=== PATIENT | female | born 1960 | race Caucasian/White ===

== ENCOUNTER 2024-01-26 13:31 | Observation (INO) ==
--- NOTE | 2024-01-26 13:40 | ED Triage Note ---
Date of Service January 26, 2024 Provider in Triage Author: Grey Cronin History of Present Illness This patient was briefly evaluated while in triage. An abbreviated physical exam was performed. This patient is a 63-year-old Female who presents to the ED for evaluation right upper quadrant abdominal pain x 5 days, getting worse has been told she has stones in her GB before, but never had pain with it no n/v/d, fevers from [place], here working Physical Exam GENERAL: NAD CARDIOVASCULAR: RRR RESPIRATORY: CTA ABDOMEN: BS x 4. RUQ TTP. Initial orders for labs and / or imaging were placed and patient was placed in the waiting area until a bed is available. Please see further documentation for the full ED course.
[2024-01-26 14:09] LABS: Basophils # (auto) 0.04 K/uL (0.00-0.20); Basophils % (auto) 0.3 %; Eosinophils # (auto) 0.18 K/uL (0.00-0.50); Eosinophils % (auto) 1.5 %; Hematocrit (blood only) 37.6 % (37.0-47.0); Hemoglobin 12.3 g/dl (12.0-16.0); Immature Granulocytes # (auto) 0.05 K/uL (0.01-0.20); Immature Granulocytes % (auto) 0.4 %; Lymphocytes # (auto) 1.52 K/uL (1.20-3.40); Lymphocytes % (auto) 12.7 %; Mean Corpuscular Hemoglobin 29.6 pg (25.0-34.0); Mean Corpuscular Hgb Conc 32.7 g/dL (32.0-36.0); Mean Corpuscular Volume 90.6 fL (80.0-100.0); Mean Platelet Volume 9.1 fL (9.4-12.4); Monocytes % (auto) 5.8 %; Neutrophils # (auto) 9.49 K/uL (1.40-6.50); Neutrophils % (auto) 79.3 %; Platelet Count 243 K/uL (130-400); Red Blood Count 4.15 M/uL (4.20-5.40); White Blood Count 11.98 K/ul (4.8-10.8)
[2024-01-26 14:36] LABS: Albumin Globulin Ratio 1.2 (0.9-2); Albumin Level 4.2 gm/dl (3.4-5.0); Bilirubin,Total 1.1 mg/dl (0.2-1.0); Calcium 9.6 mg/dl (8.6-10.3); Creatinine Clr Calc Pharmacy 67.9 ml/min; Est GFR (African American) 108.1 ml/min; Est GFR (Non-African American) 93.3 ml/min; Globulin 3.5 gm/dl (2.5-4.0); Potassium 3.8 mmol/L (3.5-5.1); Total Protein 7.7 gm/dl (6.0-8.3)
[2024-01-26 14:41] LABS: Troponin I High Sensitivity 14.9 pg/ml (0-14)
--- NOTE | 2024-01-26 15:12 | Ultrasound Report ---
ABDOMINAL ULTRASOUND, RIGHT UPPER QUADRANT HISTORY: RUQ ABD PAIN. COMPARISON: None. FINDINGS: Pancreas: The pancreatic head and tail are obscured by overlying bowel gas. The remaining portions of the pancreas are within normal limits. Liver: The liver is echogenic consistent with fatty change. Trace perihepatic fluid is noted Gallbladder: The gallbladder is distended and partially filled with small stones and sludge. There is mild gallbladder wall thickening. The technologist reported a positive sonographic Leger sign. CBD: 5 mm. Right kidney: No hydronephrosis. IMPRESSION: 1. Distended gallbladder which is partially filled with small stones and sludge. There is associated gallbladder wall thickening and a positive sonographic Leger sign. Therefore, these findings are con sistent with acute cholecystitis. Surgical consultation recommended. 2. Mild hepatic steatosis. ACT 112: Negative or not required by law. Electronically signed by: Chad Varela M.D. 01/26/2024 3:10 PM
[2024-01-26] MEDS: MoRPHine SULFATE 4 MG/ML 1 ML CARP\\VIAL IV STA (15:41)
--- NOTE | 2024-01-26 16:11 | Surgery Consultation ---
Date of Consultation January 26, 2024 Assessment & Plan (1) Acute cholecystitis: This is a 63yF with a PMH of HLD, anxiety, HTN, hypothyroid, lupus, h/o what sounds like an abdominoplasty (10 years ago in [place]) and lap band in [place] who presents to the [facility] ED on 01/26/24 with complaints of R sided abdominal pain that has progressively worsened over the last 4-5 days. She came to our ER for evaluation where she underwent a RUQ US that showed a distended gallbladder which is partially filled with small stones and sludge. There is associated gallbladder wall thickening and a positive sonographic Leger sign. Therefore, these findings are consistent with acute cholecystitis. The patient has been told she has gallstones, but never had issues like this before. On exam [atient's vital signs are stable and she is afebrile. Blood work shows a WBC of 11.4, Hbg 12.3, Tb 1.1, alkp 134 with other lfts within normal limits. On exam patient's abdomen is soft with tenderness to palpation in the RUQ. PSH includes abdominoplasty and lap band. Of significance she is in the area travelling for work, but resides in [place]. She expressed wishes to have the procedure performed in her home town to be near family. Options discussed with patient regarding surgical intervention as early as today vs. seeing if we can temporize her with abx and pain control as a bridge to get her back to [place]. She said she does know a surgeon back home that she could contact. We stated in usual circumstances we would recommend surgical intervention this admission, but that a trial abx is not out of the question to try to get her back home for the procedure. After ongoing discussion she is opting to try to have surgery at home . In this case we would recommend admission for day or so of IV abx and prn pain meds to try to alleviate patient's presenting symptoms. With then plans to send her out on a course of po abx as a bridge to future cholecystectomy. She is agreeable with the plan. Spoke with ER who will reach out to hospitalist for admission and we will follow along while she is here. NPO with ice/sips/meds is okay, IVF, and IV abx to be ordered. Repeat labs in the AM. We will follow up. History of Present Illness History of Present Illness This is a 63yF with a PMH of HLD, anxiety, HTN, hypothyroid, lupus, h/o what sounds like an abdominoplasty (10 years ago in [place]) and lap band in [place] who presents to the [facility] ED on 01/26/24 with complaints of R sided abdominal pain. Patient reports she is just in town travelling for work. She resides in [place]. She says over the last 4-5 days she developed right sided abdominal pain that has been constant and progressively worsening. She denies any issues directly related to food intake. She denies nausea/vomiting, fevers/chills, CP/SOB. Due to her pain, rating it a 9/10 in severity at its worst, she presented to our ER for further evaluation. She underwent a RUQ US that showed a distended gallbladder which is partially filled with small stones and sludge. There is associated gallbladder wall thickening and a positive sonographic Leger sign. Therefore, these findings are consistent with acute cholecystitis. She has been told she has gallstones, but they never caused problems for her before. Patient states she usually runs constipated and takes a bowel regimen for this on occasion. No recent blood thinners. Reports she would want to have surgery in [place] if appropriate and can leave the area to go home at any time in regards to her work. Allergies Allergy/AdvReac Type Severity Reaction Status Date / Time No Known Allergies Allergy Verified 01/26/24 13:42 Home Medications Medication Instructions Recorded Confirmed Type alprazolam 1 mg tablet 0.5 mg PO HS Anxiety 01/26/24 01/26/24 History atorvastatin 40 mg tablet 40 mg PO DAILY 01/26/24 01/26/24 History celecoxib 200 mg capsule 200 mg PO DAILY PRN Pain 01/26/24 01/26/24 History cyclobenzaprine 5 mg tablet 5 mg PO HS PRN Pain/Muscle Spasm 01/26/24 01/26/24 History duloxetine 60 mg capsule,delayed 60 mg PO DAILY 01/26/24 01/26/24 History release ezetimibe 10 mg tablet 10 mg PO DAILY 01/26/24 01/26/24 History ferrous sulfate 325 mg (65 mg 325 mg PO 4XWK 01/26/24 01/26/24 History iron) tablet (FeroSul) fluticasone propionate 50 1 spray intranasal DAILY 01/26/24 01/26/24 History mcg/actuation nasal spray,suspension hydroxychloroquine 200 mg tablet 200 mg PO BID 01/26/24 01/26/24 History levothyroxine 75 mcg tablet 75 mcg PO DAILYBB 01/26/24 01/26/24 History nifedipine 30 mg tablet,extended 30 mg PO DAILY 01/26/24 01/26/24 History release quetiapine 100 mg tablet 50 mg PO HS 01/26/24 01/26/24 History tirzepatide (weight loss) 2.5 2.5 mg subcut WK 01/26/24 01/26/24 History mg/0.5 mL subcutaneous pen injector (Zepbound) Patient History Medical History (Updated 01/26/24 @ 21:18 by Ashtyn Ragsdale MD) Anxiety Systemic lupus erythematosus Social History Smoking Status: Never smoker Second Hand Exposure: No; Hx Alcohol Use: Yes Hx Substance Use: No Preferred Language: Yakut Communication Ability: Effective Ironer Or Presser Required: No Beliefs That Will Affect Care: Episcopal Episcopal Beliefs: Baptism Current Living Situation: Other Current Living Situation Comment: daughter Other Information That Helps Us Care for You: No Feels Safe at Home: Yes Safety Concerns: Feels Safe At This Time Assistive Devices: None Review of Systems Constitutional: no fever and no chills Respiratory: no dyspnea Cardiovascular: no chest pain Gastrointestinal: + abdominal pain and + constipation; no nausea and no vomiting Physical Exam Physical Exam: awake/alert Respiratory: normal respiratory effort Gastrointestinal (Abdomen): Inspection/Auscultation: + abdominal surgical scar (from prior abdominoplasty); abdomen not distended Percussion/Palpation: + abdomen tender (ttp in RUQ) and abdomen soft Results & Data Vital Signs (Past 12 Hours) Vital Signs Temp Pulse Pulse Resp BP BP Pulse Ox 01/26/24 15:24 94 H 18 123/79 93 01/26/24 15:24 93 H 18 92 01/26/24 13:38 97.9 F 109 H 16 108/62 93 O2 Del Method 01/26/24 15:24 Room Air 01/26/24 15:24 Room Air 01/26/24 13:38 Room Air Diagnostic Findings ABDOMINAL ULTRASOUND, RIGHT UPPER QUADRANT HISTORY: RUQ ABD PAIN. COMPARISON: None. FINDINGS: Pancreas: The pancreatic head and tail are obscured by overlying bowel gas. The remaining portions of the pancreas are within normal limits. Liver: The liver is echogenic consistent with fatty change. Trace perihepatic fluid is noted Gallbladder: The gallbladder is distended and partially filled with small stones and sludge. There is mild gallbladder wall thickening. The technologist reported a positive sonographic Leger sign. CBD: 5 mm. Right kidney: No hydronephrosis. IMPRESSION: 1. Distended gallbladder which is partially filled with small stones and sludge. There is associated gallbladder wall thickening and a positive sonographic Leger sign. Therefore, these findings are consistent with acute cholecystitis. Surgical consultation recommended. 2. Mild hepatic steatosis. ACT 112: Negative or not required by law. Electronically signed by: Chad Varela M.D. 01/26/2024 3:10 PM PG Care Time/CCT Total # of Minutes Spent Total Time Spent with Patient: Total time spent is greater than 50% in coordination of care (as documented) at patient's floor/unit and/or counseling patient: Coding Level of Care Code 12512 IN/OBS CONSULT LVL 4,60M Diagnoses Acute cholecystitis K81.0
--- NOTE | 2024-01-26 16:29 | Emergency Department Note ---
Impression & Plan Acute cholecystitis ED Provider Note NAME: ANANDA BENNETT AGE: 63 SEX: F : 1960 ARRIVES VIA: Walk-In INFORMANT: Patient, ED PROVIDER(S): Ashtyn Ragsdale MD CHIEF COMPLAINT: Right abdominal pain HPI: This is 63-year-old female sent for right abdominal pain. Patient states that she was told she has problems with her gallbladder in the past about 5 years ago. She has pain in her right middle/upper quadrant. She notes that is been on for 4 days. She thought it would get better but it is getting worse. She has had nausea without vomiting. No diarrhea. Pain is a 9/10. Otherwise no fevers, chills, chest pain or shortness of breath. ROS: See above HPI for pertinent positives & negatives. A total of 10 systems reviewed and were otherwise negative. PAST MEDICAL HISTORY: See Below PAST SURGICAL HISTORY: See Below FAMILY HISTORY: See Below SOCIAL HISTORY: See Below HOME MEDICATIONS: See Below ALLERGIES: See Below VITALS: See Below PHYSICAL EXAMINATION: General: resting comfortably in no acute distress Head: Normocephalic and atraumatic Eyes: Normal inspection, extraocular muscles intact Ear, nose, throat: Normal external exam Neck: Normal range of motion Respiratory: lungs clear to auscultation bilaterally Cardiovascular: Regular rate/rhythm, no murmur GI: Positive Leger sign, right upper quadrant right lower quadrant tenderness Extremities: nontender, moves all extremities Neuro: The patient awake and alert, appropriately conversive, no focal deficits, symmetric faces Skin: Warm, dry, and intact MEDICAL DECISION MAKING: This is a 63-year-old female presented for right abdominal pain. Blood work and ultrasound ordered at triage. Blood work is reviewed reveals a borderline cytosis to 11.98, otherwise sodium 134. Troponin is mildly elevated 14 9. Normal transaminases. -Patient's ultrasound does reveal signs of acute cholecystitis with positive Leger sign, sludge and gallstones. -Patient requesting medication at this time for pain. Will give morphine IV. -Discussed with Beatrice Bob PA-C for surgery, patient not interested in surgery at this time wants to try antibiotics instead. -Will admit for IV antibiotics, Zosyn which is ordered at this time. -Care discussed with hospitalist service, Dr. Peng Lantigua for admission Differential diagnosis: SBO, diverticulitis, pancreatitis, cholecystitis ER treatment provided: See below Diagnostics interpreted by me: ECG: ECG independently interpreted by me with normal sinus rhythm, rate of 99, normal axis, normal NV, normal QRS, normal QTc, no ST segment elevations consistent with STEMI criteria Cardiac Monitoring: An order was placed for continuous cardiac monitoring. The monitor shows a rate of 85 with sinus rhythm. Laboratory studies: As stated above and show below. Imaging studies: See below. Past Med/Surg History Problem List (Updated 01/26/24 @ 21:18 by Ashtyn Ragsdale MD) Acute cholecystitis (Acute) Medical History (Updated 01/26/24 @ 21:18 by Ashtyn Ragsdale MD) Anxiety Systemic lupus erythematosus Social History Smoking Status: Never smoker Feels Safe at Home: Yes Allergies Allergies Allergy/AdvReac Type Severity Reaction Status Date / Time No Known Allergies Allergy Verified 01/26/24 13:42 Home Meds Home Medications Medication Instructions Recorded Confirmed alprazolam 1 mg tablet 0.5 mg PO HS Anxiety 01/26/24 01/26/24 atorvastatin 40 mg tablet 40 mg PO DAILY 01/26/24 01/26/24 celecoxib 200 mg capsule 200 mg PO DAILY PRN Pain 01/26/24 01/26/24 cyclobenzaprine 5 mg tablet 5 mg PO HS PRN Pain/Muscle Spasm 01/26/24 01/26/24 duloxetine 60 mg capsule,delayed 60 mg PO DAILY 01/26/24 01/26/24 release ezetimibe 10 mg tablet 10 mg PO DAILY 01/26/24 01/26/24 ferrous sulfate 325 mg (65 mg 325 mg PO 4XWK 01/26/24 01/26/24 iron) tablet (FeroSul) fluticasone propionate 50 1 spray intranasal DAILY 01/26/24 01/26/24 mcg/actuation nasal spray,suspension hydroxychloroquine 200 mg tablet 200 mg PO BID 01/26/24 01/26/24 levothyroxine 75 mcg tablet 75 mcg PO DAILYBB 01/26/24 01/26/24 nifedipine 30 mg tablet,extended 30 mg PO DAILY 01/26/24 01/26/24 release quetiapine 100 mg tablet 50 mg PO HS 01/26/24 01/26/24 tirzepatide (weight loss) 2.5 2.5 mg subcut WK 01/26/24 01/26/24 mg/0.5 mL subcutaneous pen injector (Zepbound) Results & Data (ED) Vital Signs Vital Signs - 24 hr 01/26/24 13:38 01/26/24 15:24 01/26/24 15:24 Temperature 36.6 C Temperature Source Temporal Artery Scan Pulse Rate 109 H 93 H Pulse Rate [Apical] 94 H Pulse Rate from SpO2 Sensor Respiratory Rate 16 18 18 Respiratory Effort / Characteristics Non-Labored Spontaneous Non-Labored Spontaneous Respiratory Depth Normal Normal Blood Pressure 108/62 Blood Pressure [Left Arm] 123/79 Blood Pressure Mean 77 Blood Pressure Mean [Left Arm] 93 Pulse Oximetry 93 92 93 Oxygen Delivery Method Room Air Room Air Room Air Sepsis Recent Fever Within 48 Hours No Sepsis New/Unexplained Change in Mental Status No Sepsis Action Taken by Nursing No Action Required 01/26/24 15:26 01/26/24 15:33 01/26/24 15:45 Temperature Temperature Source Pulse Rate 91 H 94 H 101 H Pulse Rate [Apical] Pulse Rate from SpO2 Sensor 94 H 101 H Respiratory Rate 28 H 26 H Respiratory Effort / Characteristics Respiratory Depth Blood Pressure Blood Pressure [Left Arm] Blood Pressure Mean Blood Pressure Mean [Left Arm] Pulse Oximetry 90 93 Oxygen Delivery Method Sepsis Recent Fever Within 48 Hours Sepsis New/Unexplained Change in Mental Status Sepsis Action Taken by Nursing 01/26/24 15:51 01/26/24 16:12 01/26/24 16:27 Temperature Temperature Source Pulse Rate 102 H 103 H 105 H Pulse Rate [Apical] Pulse Rate from SpO2 Sensor 102 H 103 H Respiratory Rate 26 H 23 23 Respiratory Effort / Characteristics Respiratory Depth Blood Pressure Blood Pressure [Left Arm] Blood Pressure Mean Blood Pressure Mean [Left Arm] Pulse Oximetry 93 93 Oxygen Delivery Method Sepsis Recent Fever Within 48 Hours Sepsis New/Unexplained Change in Mental Status Sepsis Action Taken by Nursing 01/26/24 16:33 01/26/24 16:45 01/26/24 16:57 Temperature Temperature Source Pulse Rate 104 H 63 101 H Pulse Rate [Apical] Pulse Rate from SpO2 Sensor 101 H Respiratory Rate 19 21 20 Respiratory Effort / Characteristics Respiratory Depth Blood Pressure Blood Pressure [Left Arm] Blood Pressure Mean Blood Pressure Mean [Left Arm] Pulse Oximetry 90 Oxygen Delivery Method Sepsis Recent Fever Within 48 Hours Sepsis New/Unexplained Change in Mental Status Sepsis Action Taken by Nursing 01/26/24 17:00 01/26/24 17:00 01/26/24 17:27 Temperature Temperature Source Pulse Rate 102 H 100 H Pulse Rate [Apical] 100 H Pulse Rate from SpO2 Sensor 103 H 99 H Respiratory Rate 16 19 19 Respiratory Effort / Characteristics Respiratory Depth Blood Pressure Blood Pressure [Left Arm] 102/68 Blood Pressure Mean Blood Pressure Mean [Left Arm] 79 Pulse Oximetry 92 91 87 L Oxygen Delivery Method Room Air Sepsis Recent Fever Within 48 Hours Sepsis New/Unexplained Change in Mental Status Sepsis Action Taken by Nursing 01/26/24 17:36 01/26/24 17:45 01/26/24 17:57 Temperature Temperature Source Pulse Rate 97 H 103 H 87 Pulse Rate [Apical] Pulse Rate from SpO2 Sensor 97 H 103 H 102 H Respiratory Rate 17 17 21 Respiratory Effort / Characteristics Respiratory Depth Blood Pressure Blood Pressure [Left Arm] Blood Pressure Mean Blood Pressure Mean [Left Arm] Pulse Oximetry 96 95 96 Oxygen Delivery Method Sepsis Recent Fever Within 48 Hours Sepsis New/Unexplained Change in Mental Status Sepsis Action Taken by Nursing Laboratory Data 01/26/24 13:40 01/26/24 13:40 Lab Results 01/26/24 Range/Units 13:40 WBC 11.98 H (4.8-10.8) K/ul RBC 4.15 L (4.20-5.40) M/uL Hgb 12.3 (12.0-16.0) g/dl Hct 37.6 (37.0-47.0) % MCV 90.6 (80.0-100.0) fL MCH 29.6 (25.0-34.0) pg MCHC 32.7 (32.0-36.0) g/dL RDW Std Deviation 47.0 H (36.4-46.3) fL RDW Coeff of Cuong 14.0 (11.5-14.5) % Plt Count 243 (130-400) K/uL MPV 9.1 L (9.4-12.4) fL Immature Gran % (Auto) 0.4 % Neut % (Auto) 79.3 % Lymph % (Auto) 12.7 % [place] % (Auto) 5.8 % Eos % (Auto) 1.5 % Baso % (Auto) 0.3 % Neut # (Auto) 9.49 H (1.40-6.50) K/uL Lymph # (Auto) 1.52 (1.20-3.40) K/uL [place] # (Auto) 0.70 H (0.11-0.59) K/uL Eos # (Auto) 0.18 (0.00-0.50) K/uL Baso # (Auto) 0.04 (0.00-0.20) K/uL Immature Gran # (Auto) 0.05 (0.01-0.20) K/uL Sodium 134 L (136-145) mmol/L Potassium 3.8 (3.5-5.1) mmol/L Chloride 101 (98-107) mmol/L Carbon Dioxide 23 (21-32) mmol/L Anion Gap 10 (3-11) BUN 9 (6-23) mg/dl Creatinine 0.69 (0.6-1.2) mg/dl Est Cr Clr Drug Dosing 67.9 ml/min Est GFR ( Amer) 108.1 ml/min Est GFR (Non-Af Amer) 93.3 ml/min BUN/Creatinine Ratio 13.0 (10-20) Glucose 167 H (70-99(Fasting)) mg/dl Calcium 9.6 (8.6-10.3) mg/dl Total Bilirubin 1.1 H (0.2-1.0) mg/dl AST 19 (13-39) U/L ALT 24 (7-52) U/L Alkaline Phosphatase 134 H (34-104) U/L Troponin I High Sens 14.9 H (0-14) pg/ml Total Protein 7.7 (6.0-8.3) gm/dl Albumin 4.2 (3.4-5.0) gm/dl Globulin 3.5 (2.5-4.0) gm/dl Albumin/Globulin Ratio 1.2 (0.9-2) Lipase 17 (11-82) U/L Administered Medications Discontinued Medications Piperacillin Sod/Tazobactam Sod (Zosyn) 4.5 gm in 100 mls @ 200 mls/hr IV NOW ONE Stop: 01/26/24 16:51 Last Infusion: 01/26/24 17:39 Dose: Infused Documented By: Admin: 01/26/24 16:53 Dose: 200 mls/hr Documented By: MERCEDES Lactated Ringer's (Lr) 1,000 mls @ 999 mls/hr IV .Q1H1M ONE Stop: 01/26/24 18:34 Last Infusion: 01/26/24 20:39 Dose: Infused Documented By: Admin: 01/26/24 17:39 Dose: 999 mls/hr Documented By: MERCEDES Morphine Sulfate (Morphine Sulfate 4 Mg/Ml 1 Ml Carp\Vial) 4 mg IV NOW STA Stop: 01/26/24 15:27 Last Admin: 01/26/24 15:41 Dose: 4 mg Documented By: MERCEDES Imaging Data Radiologist's Impression: Gallbladder Ultrasound 01/26/24 13:41 ABDOMINAL ULTRASOUND, RIGHT UPPER QUADRANT HISTORY: RUQ ABD PAIN. COMPARISON: None. FINDINGS: Pancreas: The pancreatic head and tail are obscured by overlying bowel gas. The remaining portions of the pancreas are within normal limits. Liver: The liver is echogenic consistent with fatty change. Trace perihepatic fluid is noted Gallbladder: The gallbladder is distended and partially filled with small stones and sludge. There is mild gallbladder wall thickening. The technologist reported a positive sonographic Leger sign. CBD: 5 mm. Right kidney: No hydronephrosis. IMPRESSION: 1. Distended gallbladder which is partially filled with small stones and sludge. There is associated gallbladder wall thickening and a positive sonographic Leger sign. Therefore, these findings are consistent with acute cholecystitis. Surgical consultation recommended. 2. Mild hepatic steatosis. ACT 112: Negative or not required by law. Electronically signed by: Chad Varela M.D. 01/26/2024 3:10 PM Discharge Plan Visit Data Chief Complaint: Abdominal Pain Stated Complaint: ABD PAINS ED Provider: Ashtyn Ragsdale Discharge Problem: Acute cholecystitis
[2024-01-26] MEDS: PIPERACILLIN/TAZOBACTAM 4.5 GM/100 ML BAG IV ONE (16:53)
--- NOTE | 2024-01-26 17:13 | Electrocardiogram Report ---
Test Reason : Blood Pressure : */* mmHG Vent. Rate : 99 BPM Atrial Rate : 99 BPM P-R Int : 164 ms QRS Dur : 84 ms QT Int : 320 ms P-R-T Axes : 19 -14 28 degrees QTcB Int : 410 ms Normal sinus rhythm Old Anterolateral infarct Abnormal ECG No previous ECGs available Confirmed by Branden Pop ([id number]) on 01/26/2024 5:13:45 PM Referred By: NO PCP Confirmed By: Branden Pop
[2024-01-26] MEDS: LACTATED RINGER'S 1,000 ML IV ONE (17:39)
--- NOTE | 2024-01-26 17:39 | History & Physical Report ---
Date of Service January 26, 2024 Assessment & Plan (1) Acute cholecystitis: Plan: Ceftriaxone + metronidazole NPO, IV fluids Consult general surgery Repeat LFTs in AM Plan Raynauds - continue nifedipine (notably usual runs a low BP) SLE - Continue hydroxychloroquine Anxiety - continue duloxetine and quetiapine (patient reports not taking Wellbutrin as prescribed and reduced dose of quetiapine 50mg instead of 150mg) VTE Prophylaxis - Lovenox 40mg SQ daily Diet - NPO Disposition - admit to med/surg Admission and Anticipated Discharge Date Admission Date: January 26, 2024 History of Present Illness Chief Complaint: Abdominal pain Primary Care Provider: NO PCP Wendy Segura is a 63 year old female with SLE who presents to the ER with abdominal pain. She reports 4 days of progressively worse right sided abdominal pain, no radiation, severity of pain 9/10 on arrival to the ER, currently 5/10, worse with eating anything, associated nausea. She was bending over while walking with pain today therefore decided to come in because the severity became much worse. No fever, chills, change in bowels, vomiting. 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 In the ER CT showed acute cholecystitis. She discussed with surgery and wishes to treat with antibiotics rather than surgery in order to return home to [place] to have the eventual cholecystectomy where she will be closer to family. Therefore surgery recommended admission under medicine. Allergies Allergy/AdvReac Type Severity Reaction Status Date / Time No Known Allergies Allergy Verified 01/26/24 13:42 Home Medications Medication Instructions Recorded Confirmed Type alprazolam 1 mg tablet 0.5 mg PO HS Anxiety 01/26/24 01/26/24 History atorvastatin 40 mg tablet 40 mg PO DAILY 01/26/24 01/26/24 History celecoxib 200 mg capsule 200 mg PO DAILY PRN Pain 01/26/24 01/26/24 History cyclobenzaprine 5 mg tablet 5 mg PO HS PRN Pain/Muscle Spasm 01/26/24 01/26/24 History duloxetine 60 mg capsule,delayed 60 mg PO DAILY 01/26/24 01/26/24 History release ezetimibe 10 mg tablet 10 mg PO DAILY 01/26/24 01/26/24 History ferrous sulfate 325 mg (65 mg 325 mg PO 4XWK 01/26/24 01/26/24 History iron) tablet (FeroSul) fluticasone propionate 50 1 spray intranasal DAILY 01/26/24 01/26/24 History mcg/actuation nasal spray,suspension hydroxychloroquine 200 mg tablet 200 mg PO BID 01/26/24 01/26/24 History levothyroxine 75 mcg tablet 75 mcg PO DAILYBB 01/26/24 01/26/24 History nifedipine 30 mg tablet,extended 30 mg PO DAILY 01/26/24 01/26/24 History release quetiapine 100 mg tablet 50 mg PO HS 01/26/24 01/26/24 History tirzepatide (weight loss) 2.5 2.5 mg subcut WK 01/26/24 01/26/24 History mg/0.5 mL subcutaneous pen injector (Zepbound) Past Med/Surg History Problem List (Updated 01/26/24 @ 21:18 by Ashtyn Ragsdale MD) Acute cholecystitis (Acute) Medical History (Updated 01/26/24 @ 21:18 by Ashtyn Ragsdale MD) Anxiety Systemic lupus erythematosus Social History Smoking Status: Never smoker Second Hand Exposure: No; Hx Alcohol Use: Yes Hx Substance Use: No Preferred Language: Faroese Communication Ability: Effective Life Sciences Teacher Required: No Beliefs That Will Affect Care: Buddhism Buddhism Beliefs: Latter Day Current Living Situation: Other Current Living Situation Comment: daughter Other Information That Helps Us Care for You: No Feels Safe at Home: Yes Safety Concerns: Feels Safe At This Time Assistive Devices: None Review of Systems Review of Systems: All systems reviewed & are unremarkable except as noted in HPI & below Physical Exam Constitutional: WD/WN, vitals as above Eyes: PERRL, conjunctivae normal, anicteric sclerae ENMT: external ear and nose normal, oropharynx normal Respiratory: normal respiratory effort, lungs clear to auscultation Cardiovascular: RRR, no murmur, no edema Gastrointestinal (Abdomen): Inspection/Auscultation: abdomen normal to inspection; abdomen not distended Percussion/Palpation: + abdomen tender (RUQ), + guarding and abdomen soft; abdomen not rigid Musculoskeletal: no cyanosis or clubbing, extremities motor strength 5/5 Skin: no rashes, warm and dry Neurologic: moves all extremities and awake; not confused Psychiatric: A+Ox3, euthymic affect Genitourinary: no CVA tenderness Results & Data Results & Data Vital Signs (Past 12 Hours) Vital Signs Temp Pulse Pulse Resp BP BP Pulse Ox 01/26/24 17:00 100 H 16 102/68 92 01/26/24 15:26 91 H 01/26/24 15:24 94 H 18 123/79 93 01/26/24 15:24 93 H 18 92 01/26/24 13:38 36.6 C 109 H 16 108/62 93 O2 Del Method 01/26/24 17:00 Room Air 01/26/24 15:26 01/26/24 15:24 Room Air 01/26/24 15:24 Room Air 01/26/24 13:38 Room Air Laboratory Results Abnormal lab results 01/26/24 Range/Units 13:40 WBC 11.98 H (4.8-10.8) K/ul RBC 4.15 L (4.20-5.40) M/uL RDW Std Deviation 47.0 H (36.4-46.3) fL MPV 9.1 L (9.4-12.4) fL Neut # (Auto) 9.49 H (1.40-6.50) K/uL [place] # (Auto) 0.70 H (0.11-0.59) K/uL Sodium 134 L (136-145) mmol/L Glucose 167 H (70-99(Fasting)) mg/dl Total Bilirubin 1.1 H (0.2-1.0) mg/dl Alkaline Phosphatase 134 H (34-104) U/L Troponin I High Sens 14.9 H (0-14) pg/ml Diagnostic Findings ABDOMINAL ULTRASOUND, RIGHT UPPER QUADRANT HISTORY: RUQ ABD PAIN. COMPARISON: None. FINDINGS: Pancreas: The pancreatic head and tail are obscured by overlying bowel gas. The remaining portions of the pancreas are within normal limits. Liver: The liver is echogenic consistent with fatty change. Trace perihepatic fluid is noted Gallbladder: The gallbladder is distended and partially filled with small stones and sludge. There is mild gallbladder wall thickening. The technologist reported a positive sonographic Leger sign. CBD: 5 mm. Right kidney: No hydronephrosis. IMPRESSION: 1. Distended gallbladder which is partially filled with small stones and sludge. There is associated gallbladder wall thickening and a positive sonographic Leger sign. Therefore, these findings are consistent with acute cholecystitis. Surgical consultation recommended. 2. Mild hepatic steatosis. Medications Administered ER Medications Given: Zosyn 4.5g IV Morphine 4mg IV ECG Rate (beats per minute): 99 Rhythm: sinus tachycardia Findings: no acute ischemic change Comparison ECG Date: no prior available Code Status & VTE Plan Code Status Full VTE Prophylaxis Plan VTE Prophylaxis will be ordered: Yes PG Care Time/CCT Total # of Minutes Spent Total Time Spent with Patient: Total time spent is greater than 50% in coordination of care (as documented) at patient's floor/unit and/or counseling patient: Coding Level of Care Code 37161 INT INP/OBS CARE 2/MIN Diagnoses Acute cholecystitis K81.0
[2024-01-26] MEDS: metroNIDAZOLE 500 MG/100 ML BAG IV SCH (22:01)
[2024-01-26] MEDS: LACTATED RINGER'S 1,000 ML IV SCH (22:01)
[2024-01-26] MEDS: ACETAMINOPHEN 1,000 MG/100 ML VIAL IV SCH (22:01)
[2024-01-26] MEDS: cefTRIAXone SODIUM 2,000 MG/50 ML BAG IV SCH (22:15)
[2024-01-26] MEDS ORDERED: ALPRAZolam 0.5 MG TABLET PO PRN (22:54)
[2024-01-26] MEDS: QUEtiapine FUMARATE 25 MG TABLET PO SCH (23:34)
[2024-01-26] MEDS: HYDROXYCHLOROQUINE SULFATE 200 MG TAB PO SCH (23:34)
[2024-01-27] MEDS: LEVOTHYROXINE SODIUM 75 MCG TABLET PO SCH (05:30)
[2024-01-27 05:46] LABS: Appearance Urine Clear (Clear); Bacteria Urine Automated None Seen (None Seen); Bilirubin Urine Negative (Negative); Blood Urine Negative (Negative); Cast Urine Automated 0-2 /lpf (0-2); Color Urine Yellow; Epithelial Cell Urine Auto 0-2 /hpf (0-2); Glucose Urine UA Negative (Negative); Ketones Urine Negative (Negative); Leukocyte Esterase Urine 1+ (Negative); Nitrite Urine Negative (Negative); Protein Urine Negative (Negative); RBC Urine Automated 0-2 /hpf (0-2); Specific Gravity Urine 1.011 (1.000-1.030); Urobilinogen Urine Negative (Negative)
--- NOTE | 2024-01-27 08:18 | Surgery Progress Note ---
Date of Service January 27, 2024 Assessment & Plan (1) Acute cholecystitis: Plan: Pt here with RUQ pain and workup revealing evidence of acute cholecystitis Labs this AM are pending. Vitals are stable Pt reports feeling clinically better. She remains ttp in the RUQ Will review lab data when resulted, if no issues may consider initiating liquids She has requested to connect with a surgeon at home in [place] to be closer to family, which is why we will hold off on lap tiffany this admission Continue IV abx while in house, will need script for po abx upon dispo to get her through to home until she can f/u with surgeon dr encarnacion covering wknd as above. feeling much better. wbc dropped to 7,000. continue conservative management. goal is d/c to go home and have elective cholecystectomy in [place]. Admission and Anticipated Discharge Date Admission Date: January 26, 2024 Subjective Patient reports feeling better than yesterday, although warper tender to palpation. No other complaints. Says she does have a surgeon close to home she will connect with. Physical Exam Physical Exam: awake/alert, no distress Respiratory: normal respiratory effort Gastrointestinal (Abdomen): Percussion/Palpation: + abdomen tender (ttp in the ruq) and abdomen soft Results & Data Vital Signs (Past 12 Hours) Vital Signs Temp Pulse Pulse Resp BP BP Pulse Ox 01/27/24 07:32 98.2 F 76 16 95/60 L 92 01/26/24 21:25 98.1 F 95 H 18 114/74 93 01/26/24 20:30 85 14 90/61 L 99 O2 Del Method 01/27/24 07:32 Room Air 01/26/24 21:25 Room Air 01/26/24 20:30 Nasal Cannula PG Care Time/CCT Total # of Minutes Spent Total Time Spent with Patient: Total time spent is greater than 50% in coordination of care (as documented) at patient's floor/unit and/or counseling patient: Coding Level of Care Code 46965 SUB INP/OBS CARE 06/30MIN Diagnoses Acute cholecystitis K81.0
[2024-01-27 08:35] LABS: Basophils # (auto) 0.02 K/uL (0.00-0.20); Basophils % (auto) 0.3 %; Eosinophils % (auto) 4.1 %; Hematocrit (blood only) 30.8 % (37.0-47.0); Hemoglobin 10.2 g/dl (12.0-16.0); Immature Granulocytes # (auto) 0.03 K/uL (0.01-0.20); Immature Granulocytes % (auto) 0.4 %; Lymphocytes # (auto) 1.54 K/uL (1.20-3.40); Lymphocytes % (auto) 21.1 %; Mean Corpuscular Hemoglobin 29.7 pg (25.0-34.0); Mean Corpuscular Hgb Conc 33.1 g/dL (32.0-36.0); Mean Corpuscular Volume 89.8 fL (80.0-100.0); Mean Platelet Volume 9.4 fL (9.4-12.4); Monocytes # (auto) 0.58 K/uL (0.11-0.59); Monocytes % (auto) 7.9 %; Neutrophils # (auto) 4.84 K/uL (1.40-6.50); Neutrophils % (auto) 66.2 %; Platelet Count 218 K/uL (130-400); RDW Coefficient of Variation 14.2 % (11.5-14.5); RDW Standard Deviation 46.8 fL (36.4-46.3); Red Blood Count 3.43 M/uL (4.20-5.40); White Blood Count 7.31 K/ul (4.8-10.8)
[2024-01-27] MEDS ORDERED: ATORVASTATIN 40 MG TAB PO SCH (09:00)
[2024-01-27] MEDS: NIFEdipine EXTENDED REL 30 MG TABCR PO SCH (09:27)
[2024-01-27] MEDS: DULoxetine HCL 60 MG CAP PO SCH (09:28)
[2024-01-27 09:29] LABS: Albumin Globulin Ratio 1.2 (0.9-2); Albumin Level 3.3 gm/dl (3.4-5.0); BUN Creatinine Ratio 12.7 (10-20); Bilirubin,Total 0.9 mg/dl (0.2-1.0); Calcium 8.6 mg/dl (8.6-10.3); Creatinine Clr Calc Pharmacy 84.8 ml/min; Est GFR (African American) 116.5 ml/min; Est GFR (Non-African American) 100.5 ml/min; Globulin 2.7 gm/dl (2.5-4.0); Potassium 3.7 mmol/L (3.5-5.1)
--- NOTE | 2024-01-27 13:03 | Hospitalist Progress Note ---
Date of Service January 27, 2024 Assessment & Plan (1) Acute cholecystitis: Plan: Her abdominal pain has worsened. LFTs are now elevated. She remains on intravenous Rocephin and Flagyl, day 2. Surgery consultation appreciated. Hopefully the surgery can be done as soon as possible. (2) Transaminitis: Plan: LFTs are mildly elevated. Daily lab ordered (3) Essential hypertension: Plan: Stable. Continue current medical management (4) Hyperlipidemia: Plan: Statin therapy is temporarily on hold (5) Primary hypothyroidism: Plan: Stable. Continue current thyroid replacement (6) Systemic lupus erythematosus: Plan: Stable. Continue hydroxychloroquine therapy Plan Hopefully laparoscopic cholecystectomy can be performed as soon as possible here. Admission and Anticipated Discharge Date Admission Date: January 26, 2024 Subjective Alert and oriented. She has palpable right upper quadrant pain and in fact her pain is worsened and nursing is notifying surgery. LFTs are elevated. She remains on Rocephin and Flagyl, day 2. Hopefully surgery can be accomplished sooner here rather than later in [facility]. Review of Systems 2 Review of Systems: Constitutionalno fever or chills ENTno blurred vision, no double vision, no epistaxis, no sore throat Respiratoryno cough, no wheezing, no shortness of breath Cardiacno palpitations, no chest pain, no syncope GIanorexia. Right upper quadrant pain. No diarrhea, melena, hematochezia GUno urinary retention, no urinary incontinence, no dysuria, no hematuria Musculoskeletalno joint pain, no muscle tenderness Skinno bruising, no rashes, no pruritus Neurono isolated weakness, no paresthesia, no weakness Psychno depression, no anxiety Physical Exam 2 Physical Exam: General-alert and oriented x3, no fever, no chills HEENT-head atraumatic and normocephalic, pupils equal and reactive to light, extraocular muscles intact Neck-no lymphadenopathy or thyromegaly, trachea midline Chest-clear to auscultation. No rales, wheezing or rhonchi Cardiac-regular rate and rhythm, normal S1 and S2 Abdomen-right upper quadrant discomfort with palpation. No masses. No rebound or guarding. Normal bowel sounds, no hepatosplenomegaly Extremities-no cyanosis, clubbing, or edema Neuro-cranial nerves II through XII intact, motor and sensory function within normal limits, strength symmetrical, no focal deficits Psych-normal affect, normal mood Results & Data Results & Data Vital Signs (Past 12 Hours) Vital Signs Temp Pulse Pulse Resp BP Pulse Ox O2 Del Method 01/27/24 12:52 36.5 C 82 16 96/65 L 91 Room Air 01/27/24 09:44 36.5 C 76 16 99/64 L 94 Room Air 01/27/24 07:32 36.8 C 76 16 95/60 L 92 Room Air Laboratory Results 01/27/24 08:10 01/27/24 08:10 PG Care Time/CCT Total # of Minutes Spent Total Time Spent with Patient: Total time spent is greater than 50% in coordination of care (as documented) at patient's floor/unit and/or counseling patient: Coding Level of Care Code 53607 SUB INP/OBS CARE 3/50MIN Diagnoses Acute cholecystitis K81.0 Transaminitis R74.01 Essential hypertension I10 Hyperlipidemia E78.5 Primary hypothyroidism E03.9 Systemic lupus erythematosus M32.9
[2024-01-27] MEDS: MoRPHine SULFATE 2 MG/ML CARP IV PRN (13:31)
[2024-01-27] MEDS: MoRPHine SULFATE 4 MG/ML 1 ML CARP\\VIAL IV PRN (20:42)
[2024-01-28] MEDS: LACTATED RINGER'S 1,000 ML IV SCH ×2 (03:38→18:04)
[2024-01-28 06:47] LABS: Basophils # (auto) 0.05 K/uL (0.00-0.20); Basophils % (auto) 0.6 %; Eosinophils # (auto) 0.27 K/uL (0.00-0.50); Eosinophils % (auto) 3.4 %; Hemoglobin 10.8 g/dl (12.0-16.0); Immature Granulocytes # (auto) 0.03 K/uL (0.01-0.20); Immature Granulocytes % (auto) 0.4 %; Lymphocytes % (auto) 16.3 %; Mean Corpuscular Hemoglobin 29.9 pg (25.0-34.0); Mean Corpuscular Hgb Conc 32.7 g/dL (32.0-36.0); Mean Corpuscular Volume 91.4 fL (80.0-100.0); Mean Platelet Volume 8.8 fL (9.4-12.4); Monocytes # (auto) 0.69 K/uL (0.11-0.59); Monocytes % (auto) 8.7 %; Neutrophils # (auto) 5.62 K/uL (1.40-6.50); Neutrophils % (auto) 70.6 %; Platelet Count 247 K/uL (130-400); RDW Coefficient of Variation 14.5 % (11.5-14.5); RDW Standard Deviation 48.3 fL (36.4-46.3); Red Blood Count 3.61 M/uL (4.20-5.40); White Blood Count 7.96 K/ul (4.8-10.8)
[2024-01-28 07:34] LABS: Albumin Globulin Ratio 1.2 (0.9-2); Albumin Level 3.2 gm/dl (3.4-5.0); BUN Creatinine Ratio 16.3 (10-20); Bilirubin,Total 0.8 mg/dl (0.2-1.0); Calcium 8.4 mg/dl (8.6-10.3); Creatinine Clr Calc Pharmacy 95.1 ml/min; Est GFR (Non-African American) 104.4 ml/min; Globulin 2.7 gm/dl (2.5-4.0); Potassium 3.9 mmol/L (3.5-5.1); Total Protein 5.9 gm/dl (6.0-8.3)
--- NOTE | 2024-01-28 08:35 | XRay Report ---
SINGLE VIEW CHEST CLINICAL HISTORY: Hypoxia. Cholecystitis. FINDINGS: An AP, portable, upright chest radiograph is obtained. No prior studies are available for c omparison at the time of dictation. The cardiomediastinal silhouette is unremarkable. There is bibasi lar airspace consolidation. Question small pleural effusions. No pneumothorax is seen. The bony thora x is grossly intact. IMPRESSION: 1. There is bibasilar consolidation which could represent segmental atelectasis and/or pneumonia/aspi ration pneumonitis. Correlate clinically. 2. Small pleural effusions are not excluded. ACT 112: Negative or not required by law. Electronically signed by: Audi Ewing M.D. 01/28/2024 8:33 AM
[2024-01-28] MEDS ORDERED: ONDANSETRON INJ 2 MG/ML 2 ML VIAL IV PRN (08:37)
[2024-01-28] MEDS: ONDANSETRON INJ 2 MG/ML 2 ML VIAL IV STA (08:52)
--- NOTE | 2024-01-28 12:39 | Hospitalist Progress Note ---
Date of Service January 28, 2024 Assessment & Plan (1) Acute cholecystitis: Plan: Her right upper quadrant pain has now improved. ERCP ordered and pending. Continue Rocephin and Flagyl, day 3. Surgery consultation appreciated. (2) Transaminitis: Plan: LFTs are mildly elevated and continue to rise. MRCP ordered today, January 27, to see if there is any evidence of a common bile duct stone. Daily lab ordered (3) Essential hypertension: Plan: Stable. Continue current medical management (4) Hyperlipidemia: Plan: Statin therapy is temporarily on hold (5) Primary hypothyroidism: Plan: Stable. Continue current thyroid replacement (6) Systemic lupus erythematosus: Plan: Stable. Continue hydroxychloroquine therapy (7) Acute respiratory failure with hypoxia: Plan: I suspect she has a degree of lower lobe atelectasis from the acute cholecystitis. Supplemental oxygen per nasal cannula to maintain saturation greater than 90%. Wean off as tolerated. Incentive spirometry has been ordered Plan Hopefully laparoscopic cholecystectomy can be performed as soon as possible here. MRCP pending to determine if there is evidence of a common bile duct stone. If there is, she will need to be transferred to a tertiary care center. I have spoken to her daughter, Mirian, by phone and told her the plan. Admission and Anticipated Discharge Date Admission Date: January 26, 2024 Subjective Alert and oriented. She states she is feeling somewhat better with less right upper quadrant discomfort but her LFTs continue to rise. Case discussed with general surgery. Will obtain MRCP to see if there is a common bile duct stone. I expressed my opinion that cholecystectomy should move forward as soon as possible. If she has evidence of a common bile duct stone, she will need to be transferred to a tertiary care center for surgical intervention because we cannot do ERCP here. I updated her daughter, Mirian, by phone today. She is now n.p.o. and IV fluids are at 100. She remains on Rocephin and Flagyl. She is requiring low-flow oxygen and chest x-ray is pending. Review of Systems 2 Review of Systems: Constitutionalno fever or chills ENTno blurred vision, no double vision, no epistaxis, no sore throat Respiratoryno cough, no wheezing, no shortness of breath Cardiacno palpitations, no chest pain, no syncope GIanorexia. Right upper quadrant pain. No diarrhea, melena, hematochezia GUno urinary retention, no urinary incontinence, no dysuria, no hematuria Musculoskeletalno joint pain, no muscle tenderness Skinno bruising, no rashes, no pruritus Neurono isolated weakness, no paresthesia, no weakness Psychno depression, no anxiety Physical Exam 2 Physical Exam: General-alert and oriented x3, no fever, no chills HEENT-head atraumatic and normocephalic, pupils equal and reactive to light, extraocular muscles intact Neck-no lymphadenopathy or thyromegaly, trachea midline Chest-clear to auscultation. No rales, wheezing or rhonchi Cardiac-regular rate and rhythm, normal S1 and S2 Abdomen-right upper quadrant discomfort with palpation. No masses. No rebound or guarding. Normal bowel sounds, no hepatosplenomegaly Extremities-no cyanosis, clubbing, or edema Neuro-cranial nerves II through XII intact, motor and sensory function within normal limits, strength symmetrical, no focal deficits Psych-normal affect, normal mood Results & Data Results & Data Vital Signs (Past 12 Hours) Vital Signs Temp Pulse Resp BP Pulse Ox O2 Del Method O2 Flow Rate 01/28/24 07:22 36.8 C 75 18 93/60 L 94 Nasal Cannula 2 01/28/24 06:13 36.8 C 76 18 94/59 L 93 Nasal Cannula 2 01/28/24 03:21 74 90/54 L 92 Nasal Cannula 2 Laboratory Results 01/28/24 06:22 01/28/24 06:22 PG Care Time/CCT Total # of Minutes Spent Total Time Spent with Patient: Total time spent is greater than 50% in coordination of care (as documented) at patient's floor/unit and/or counseling patient: Coding Level of Care Code 02172 SUB INP/OBS CARE 3/50MIN Diagnoses Acute cholecystitis K81.0 Transaminitis R74.01 Essential hypertension I10 Hyperlipidemia E78.5 Primary hypothyroidism E03.9 Systemic lupus erythematosus M32.9 Acute respiratory failure with hypoxia J96.01
--- NOTE | 2024-01-28 18:18 | Magnetic Resonance Report ---
MRCP CLINICAL HISTORY: Acute cholecystitis. Elevated hepatic transaminases. COMPARISON STUDY: Abdominal ultrasound dated 01/26/2024. TECHNIQUE: Abdominal MRCP is performed utilizing various T2-weighted sequences in the axial and coron al planes. IV contrast was not administered for this examination. 3-D reformats are created and asses sed. Diffusion weighted imaging was utilized. FINDINGS: The gallbladder is distended and thick-walled with surrounding inflammation and fluid. There are nume jarad gallstones, and findings are consistent with acute cholecystitis. The common bile duct is normal in caliber, measuring up to 4 mm in diameter. No intraluminal filling defects are seen to suggest ch oledocholithiasis. There is no intrahepatic biliary ductal dilatation. The pancreatic duct is normal in caliber. The liver is top normal in size. Steatosis is suspected. The unenhanced liver is otherwise normal as imaged noting periportal edema. The unenhanced spleen, adrenal glands, kidneys, and pancreas are joaquin sly unremarkable. The abdominal aorta is normal in course and caliber. Imaged portions of bowel show no evidence of obstruction. There is a small volume of perihepatic ascites. There are small pleural e ffusions with bibasilar airspace consolidation. The heart appears enlarged. No destructive bony proce ss is seen. IMPRESSION: 1. Cholelithiasis with acute cholecystitis. 2. The common bile duct is normal in caliber with no evidence of choledocholithiasis. 3. Small volume perihepatic ascites. 4. Suspect hepatic steatosis. 5. Small pleural effusions with airspace consolidation seen at both lung bases. Dictated: 01/28/2024 4:01 PM Transcribed: 01/28/2024 6:06 PM Bryn [id number] [email or web address] Electronically signed by: Audi Ewing M.D. 01/28/2024 6:16 PM
--- NOTE | 2024-01-28 21:36 | Surgery Progress Note ---
Date of Service January 28, 2024 Assessment & Plan (1) Acute cholecystitis: Plan: Pt here with RUQ pain and workup revealing evidence of acute cholecystitis. Reportedly has wanted to try conservative management preferring to get home to [place] for surgical treatment. Patient reports feeling better today although still TTP, unable to tolerate oral intake and new O2 saturation concerns requiring supplemental O2. She has remained afebrile and otherwise with stable VS. Does not appear toxic. Labs this am reveal continued resolution of leukocytosis for the past 2 days. AST, ALT and Alk Phos have slightly trended up since yesterday while Tbili remains WNL An MRCP was obtained today with continued evidence of acute cholecystitis including perihepatic ascites without evidence for choledocholithiasis. Small pleural effusions with airspace consolidation seen at both lung bases. Continue IV abx, on Ceftriaxone and Flagyl Today it does not seem as though she is headed towards a discharge for later surgical intervention but will see how she fares into tomorrow F/U am labs I will continue to follow this weekend Admission and Anticipated Discharge Date Admission Date: January 26, 2024 Subjective Patient seen and examined this am. She states that she feels good when I arrived to examine her today. States she almost has complete resolution of tenderness and without current pain. She does admit that she has been unable to tolerate oral intake as she develops pain when she eats. The last thing she recalls taking in was jello last night that caused pain. She states she has not tried anything since. Nursing and medicine have reported she has had low O2 saturations requiring supplemental O2 by [place]. She denies SOB Physical Exam Constitutional: not ill appearing, not in distress and not diaphoretic Gastrointestinal (Abdomen): Inspection/Auscultation: abdomen normal to inspection; abdomen not distended Percussion/Palpation: + abdomen tender, + guarding (voluntary) and abdomen soft Minimal TTP right epigastric area Results & Data Vital Signs (Past 12 Hours) Vital Signs Temp Pulse Resp BP Pulse Ox O2 Del Method O2 Flow Rate 01/28/24 20:15 Nasal Cannula 2 01/28/24 20:09 92 Nasal Cannula 2 01/28/24 20:08 36.6 C 86 16 114/67 84 L Room Air 01/28/24 15:34 36.7 C 78 18 114/72 94 Room Air PG Care Time/CCT Total # of Minutes Spent Total Time Spent with Patient: Total time spent is greater than 50% in coordination of care (as documented) at patient's floor/unit and/or counseling patient: Coding Level of Care Code 62703 SUB INP/OBS CARE 2MIN Diagnoses Acute cholecystitis K81.0
[2024-01-29 07:15] LABS: Albumin Level 3.4 gm/dl (3.4-5.0); Bilirubin,Total 0.6 mg/dl (0.2-1.0); Calcium 8.3 mg/dl (8.6-10.3); Potassium 4.4 mmol/L (3.5-5.1)
[2024-01-29 07:19] LABS: Basophils # (auto) 0.06 K/uL (0.00-0.20); Basophils % (auto) 0.7 %; Eosinophils # (auto) 0.24 K/uL (0.00-0.50); Eosinophils % (auto) 2.8 %; Hematocrit (blood only) 34.7 % (37.0-47.0); Hemoglobin 11.6 g/dl (12.0-16.0); Immature Granulocytes # (auto) 0.04 K/uL (0.01-0.20); Immature Granulocytes % (auto) 0.5 %; Lymphocytes # (auto) 1.32 K/uL (1.20-3.40); Lymphocytes % (auto) 15.6 %; Mean Corpuscular Hemoglobin 29.9 pg (25.0-34.0); Mean Corpuscular Hgb Conc 33.4 g/dL (32.0-36.0); Mean Corpuscular Volume 89.4 fL (80.0-100.0); Mean Platelet Volume 9.4 fL (9.4-12.4); Monocytes # (auto) 0.65 K/uL (0.11-0.59); Monocytes % (auto) 7.7 %; Neutrophils # (auto) 6.14 K/uL (1.40-6.50); Neutrophils % (auto) 72.7 %; Platelet Count 280 K/uL (130-400); RDW Coefficient of Variation 14.6 % (11.5-14.5); RDW Standard Deviation 47.8 fL (36.4-46.3); Red Blood Count 3.88 M/uL (4.20-5.40); White Blood Count 8.45 K/ul (4.8-10.8)
[2024-01-29 07:21] LABS: Albumin Globulin Ratio 1.3 (0.9-2); BUN Creatinine Ratio 14.3 (10-20); Creatinine Clr Calc Pharmacy 95.1 ml/min; Est GFR (Non-African American) 104.4 ml/min; Globulin 2.6 gm/dl (2.5-4.0)
--- NOTE | 2024-01-29 09:30 | Surgery Progress Note ---
<Statement entered by Libby Conner, DO - 01/29/24 10:01> I have seen and examined this patient this am with the surgical PA, I agree with this plan Date of Service January 29, 2024 Assessment & Plan (1) Acute cholecystitis: Plan: Patient seen and examined with Dr. Conner. Wendy reports that she is feeling much better today. Abdominal pain is nearly resolved. Vital signs stable. No supplemental O2 this morning. WBC 8.45; AST improved today at 45; ALT improved today at 70; Alk Phos with slight increase from 233 to 260. Wendy states that she is hungry, will place on full liquid diet with no dairy . Plan is for no surgical intervention while patient is in [place]. She would like to return to [place] for surgery. Her daughter will be arriving today. If Wendy continues to do well, I do feel that this plan may be reasonable. She is aware that she will need her gallbladder removed. She was encouraged to call and schedule appointment with general surgeon at home. All questions answered. Admission and Anticipated Discharge Date Admission Date: January 26, 2024 Subjective Wendy is laying comfortably in bed. She reports that she is feeling well today. She states that she her abdominal pain is greatly improved today. She denies any shortness of breath. Her daughter is traveling to [place] today. Wendy would still like to return to [place] for gallbladder surgery. Review of Systems Constitutional: as per Subjective / HPI; no fever and no chills Respiratory: no dyspnea and no dyspnea on exertion Cardiovascular: no chest pain, no chest pain at rest, no chest pain with activity, no dyspnea, no dyspnea at rest and no dyspnea on exertion Physical Exam Constitutional: WD/WN, vitals as above not ill appearing, not in distress and not diaphoretic Eyes: PERRL, conjunctivae normal, anicteric sclerae Respiratory: normal respiratory effort; no respiratory distress and no labored breathing Gastrointestinal (Abdomen): Inspection/Auscultation: abdomen normal to inspection; abdomen not distended Percussion/Palpation: + abdomen tender and abdomen soft; no guarding (voluntary) and abdomen not rigid Minimal TTP right epigastric area- this is even improved from yesterday. Psychiatric: A+Ox3, euthymic affect Results & Data Vital Signs (Past 12 Hours) Vital Signs Temp Pulse Resp BP Pulse Ox O2 Del Method O2 Flow Rate 01/29/24 07:34 36.4 C L 73 16 103/66 96 Nasal Cannula 2 PG Care Time/CCT Total # of Minutes Spent Total Time Spent with Patient: Total time spent is greater than 50% in coordination of care (as documented) at patient's floor/unit and/or counseling patient: Coding Level of Care Code 60928 SUB INP/OBS CARE 2/35MIN Diagnoses Acute cholecystitis K81.0
[2024-01-29] MEDS: D5W AND NSS 1,000 ML IV SCH (10:08)
--- NOTE | 2024-01-29 15:14 | Hospitalist Progress Note ---
Date of Service January 29, 2024 Assessment & Plan (1) Acute cholecystitis: Plan: Her right upper quadrant pain has now resolved. ERCP negative for CBD stone. Currently on Rocephin and Flagyl, day 4. Surgery consultation appreciated. Hopefully home tomorrow on an oral antibiotic and she will return to [facility] to pursue urgent cholecystectomy according to her wishes (2) Transaminitis: Plan: LFTs are mildly elevated but are now declining. MRCP negative for CBD stone. Daily lab ordered (3) Essential hypertension: Plan: Stable. Continue current medical management (4) Hyperlipidemia: Plan: Statin therapy is temporarily on hold. May resume after cholecystectomy (5) Primary hypothyroidism: Plan: Stable. Continue current thyroid replacement (6) Systemic lupus erythematosus: Plan: Stable. Continue hydroxychloroquine therapy (7) Acute respiratory failure with hypoxia: Plan: I suspect she has a degree of lower lobe atelectasis from the acute cholecystitis. Supplemental oxygen per nasal cannula to maintain saturation greater than 90%. Wean off as tolerated. Incentive spirometry has been ordered Plan Hopeful discharge to home tomorrow, January 29, on room air and an oral antibiotic so she can return to [facility] where she will pursue urgent cholecystectomy. Admission and Anticipated Discharge Date Admission Date: January 26, 2024 Subjective Alert and oriented. She is feeling much better. Liver enzymes are now downtrending. Fortunately, the MRCP did not reveal any stone in the common bile duct. Hopefully she can go home tomorrow, January 29, on an oral antibiotic and pursue urgent cholecystectomy at home in [place], [place]. Review of Systems 2 Review of Systems: Constitutionalno fever or chills ENTno blurred vision, no double vision, no epistaxis, no sore throat Respiratoryno cough, no wheezing, no shortness of breath Cardiacno palpitations, no chest pain, no syncope GIanorexia has resolved. Right upper quadrant pain has resolved. No diarrhea, melena, hematochezia GUno urinary retention, no urinary incontinence, no dysuria, no hematuria Musculoskeletalno joint pain, no muscle tenderness Skinno bruising, no rashes, no pruritus Neurono isolated weakness, no paresthesia, no weakness Psychno depression, no anxiety Physical Exam 2 Physical Exam: General-alert and oriented x3, no fever, no chills HEENT-head atraumatic and normocephalic, pupils equal and reactive to light, extraocular muscles intact Neck-no lymphadenopathy or thyromegaly, trachea midline Chest-clear to auscultation. No rales, wheezing or rhonchi Cardiac-regular rate and rhythm, normal S1 and S2 Abdomen-right upper quadrant discomfort with palpation has resolved. No masses. No rebound or guarding. Normal bowel sounds, no hepatosplenomegaly Extremities-no cyanosis, clubbing, or edema Neuro-cranial nerves II through XII intact, motor and sensory function within normal limits, strength symmetrical, no focal deficits Psych-normal affect, normal mood Results & Data Results & Data Vital Signs (Past 12 Hours) Vital Signs Temp Pulse Resp BP Pulse Ox O2 Del Method O2 Flow Rate 01/29/24 10:21 Nasal Cannula 2 01/29/24 07:34 36.4 C L 73 16 103/66 96 Nasal Cannula 2 Laboratory Results 01/29/24 06:35 01/29/24 06:27 PG Care Time/CCT Total # of Minutes Spent Total Time Spent with Patient: Total time spent is greater than 50% in coordination of care (as documented) at patient's floor/unit and/or counseling patient: Coding Level of Care Code 58518 SUB INP/OBS CARE 235MIN Diagnoses Acute cholecystitis K81.0 Transaminitis R74.01 Essential hypertension I10 Hyperlipidemia E78.5 Primary hypothyroidism E03.9 Systemic lupus erythematosus M32.9 Acute respiratory failure with hypoxia J96.01
[2024-01-30 07:36] LABS: Basophils # (auto) 0.05 K/uL (0.00-0.20); Basophils % (auto) 0.6 %; Eosinophils # (auto) 0.26 K/uL (0.00-0.50); Hematocrit (blood only) 35.1 % (37.0-47.0); Hemoglobin 11.4 g/dl (12.0-16.0); Immature Granulocytes # (auto) 0.03 K/uL (0.01-0.20); Immature Granulocytes % (auto) 0.4 %; Lymphocytes # (auto) 1.58 K/uL (1.20-3.40); Lymphocytes % (auto) 18.5 %; Mean Corpuscular Hemoglobin 29.5 pg (25.0-34.0); Mean Corpuscular Hgb Conc 32.5 g/dL (32.0-36.0); Mean Corpuscular Volume 90.7 fL (80.0-100.0); Mean Platelet Volume 8.9 fL (9.4-12.4); Monocytes # (auto) 0.77 K/uL (0.11-0.59); Neutrophils # (auto) 5.86 K/uL (1.40-6.50); Neutrophils % (auto) 68.5 %; Platelet Count 296 K/uL (130-400); RDW Coefficient of Variation 14.6 % (11.5-14.5); RDW Standard Deviation 48.2 fL (36.4-46.3); Red Blood Count 3.87 M/uL (4.20-5.40); White Blood Count 8.55 K/ul (4.8-10.8)
[2024-01-30 07:55] LABS: Albumin Globulin Ratio 1.3 (0.9-2); Albumin Level 3.5 gm/dl (3.4-5.0); BUN Creatinine Ratio 7.7 (10-20); Bilirubin,Total 0.4 mg/dl (0.2-1.0); Calcium 8.5 mg/dl (8.6-10.3); Creatinine Clr Calc Pharmacy 89.7 ml/min; Est GFR (African American) 118.7 ml/min; Est GFR (Non-African American) 102.4 ml/min; Globulin 2.8 gm/dl (2.5-4.0); Potassium 3.5 mmol/L (3.5-5.1); Total Protein 6.3 gm/dl (6.0-8.3)
[2024-01-30 08:21] VITALS: PULSE 72; O2SAT 95
[2024-01-30 11:24] VITALS: RESP 16; TEMP 98.6
--- NOTE | 2024-01-30 11:59 | Surgery Progress Note ---
<Statement entered by Libby Conner, - 01/30/24 16:11> I have seen and examined this patient this am. She is ready to go home and plans to see her surgeon in [place]. Date of Service January 30, 2024 Assessment & Plan (1) Acute cholecystitis: Plan: Pt here w/ acute cholecystitis Pt wishes to have procedure performed close to her home in [place], therefore she was admitted over the wknd for IV abx and pain control LFTs increased over wknd and MRCP confirmed no choledocholithiasis WBC 8, LFTs show tb 0.4, AST 23, ALT 49, alkp 234. Vitals stable and pt afebrile She denies pain this AM and is not tender on exam Will advance to low fat, which she should continue to remain on until her surgery is able to be performed at home We are okay with discharge today. She anticipates taking a flight this evening, we recommended frequent ambulation to help prevent DVT PO abx upon dispo okay Admission and Anticipated Discharge Date Admission Date: January 28, 2024 Subjective Patient reports feeling well this AM. Pain controlled. No nausea/vomiting. Wishes to have surgery in [place] Physical Exam Physical Exam: awake/alert, no distress Constitutional: well developed and well nourished Gastrointestinal (Abdomen): Inspection/Auscultation: abdomen not distended Percussion/Palpation: abdomen soft; abdomen nontender Results & Data Vital Signs (Past 12 Hours) Vital Signs Temp Pulse Pulse Resp BP Pulse Ox O2 Del Method 01/30/24 11:20 98.6 F 72 16 114/70 95 Room Air 01/30/24 08:15 98.8 F 72 20 113/72 95 Room Air 01/30/24 07:30 Room Air PG Care Time/CCT Total # of Minutes Spent Total Time Spent with Patient: Total time spent is greater than 50% in coordination of care (as documented) at patient's floor/unit and/or counseling patient: Coding Level of Care Code 36657 SUB INP/OBS CARE 06/30MIN Diagnoses Acute cholecystitis K81.0
--- NOTE | 2024-01-30 12:11 | Discharge Summary ---
Discharge Summary Date of Service January 30, 2024 Principal Dx & Hospital Course #1 = Principal Diagnosis (1) Acute cholecystitis: -Her right upper quadrant pain has now resolved. -MRCP negative for CBD stone. -Received Rocephin and Flagyl as an inpatient. -Patient has refused surgery to be preformed as an inpatient at [facility] -Surgery consulted: Discussed with surgical team- patient may be discharged on abx and follow up with surgeon near home for urgent cholecystectomy according to her wishes (2) Transaminitis: -LFTs initially mildly elevated but then trended back to normal limits. -MRCP negative for CBD stone. -Patient will need repeat labs as an outpatient to ensure stability -Statin on hold until post cholecystectomy (3) Essential hypertension: Stable. Continue current medical management (4) Hyperlipidemia: Statin therapy is temporarily on hold. May resume after cholecystectomy (5) Primary hypothyroidism: Stable. Continue current thyroid replacement (6) Systemic lupus erythematosus: Stable. Continue hydroxychloroquine therapy Plan Notes For Next Care Provider Patient presented with acute cholecystitis. MRCP was obtained as elevated LFT's on admission were noted. Negative for choledocholithiasis. Surgeyr was consulted. Patient refused inpatient surgical intervention opting for surgery in [place]. Patient's pain resolved with antibiotics. Patient was cleared by surgery for discharge to follow with surgeon back home. Medication Changes From Visit Take antibiotic Augmentin for 7 days. Admission HPI Per Admitting Provider Wendy Segura is a 63 year old female with SLE who presents to the ER with abdominal pain. She reports 4 days of progressively worse right sided abdominal pain, no radiation, severity of pain 9/10 on arrival to the ER, currently 5/10, worse with eating anything, associated nausea. She was bending over while walking with pain today therefore decided to come in because the severity became much worse. No fever, chills, change in bowels, vomiting. She notes 5 years ago having incidental hop picker of gall stones on a scan but she has not had any symptoms of cholelithiasis previously. In the ER CT showed acute cholecystitis. She discussed with surgery and wishes to treat with antibiotics rather than surgery in order to return home to [place] to have the eventual cholecystectomy where she will be closer to family. Therefore surgery recommended admission under medicine. Discharge Exam GEN: The patient is awake, alert and oriented 3 HEENT--PERRL, EOMI, mucous membranes and oropharynx mildly dry Neck--On neck collar Heart--normal S1 and S2. No murmurs, rubs or gallops. Lungs--clear bilaterally, no respiratory distress, no accessory muscle use. Abdomen--normal bowel sounds. Abdominal tenderness resolved. Extremities--no cyanosis or clubbing. No edema. Neurologic--cranial nerves II through XII grossly intact.Coarse tremors Rheumatologic--normal range of motion. Psychiatric--normal affect. Discharge Plan Discharge Items Patient Disposition: Home - Self-Care Reason For Visit: ACUTE CHOLECYSTITIS Discharge Diagnosis: Acute Cholecystitis Activity: As commented below Activity Comment: Limit activity until cleared by surgeon at home Lifting: No more than 5 pounds Non-emergency contact: Primary Care Provider and Surgeon Call non-emergency contact if: you have any medication questions, your symptoms worsen, your pain is not controlled, your pain is worsening and you have a fever Follow-up/Referrals: PCP,NO [Primary Care Provider] - Diet: Low Fat Addtl Attending Provider Instructions: Please ensure that you see surgeon upon return home. You ultimately will need to have surgical intervention. Please take antibiotics as prescribed. Do not delay seeing surgeon. Pending Studies at Discharge: No Stand-Alone Forms: My [facility] [place], Smoking Cessation Medications and DC Order Prescriptions: New amoxicillin-pot clavulanate 875-125 mg tablet 1 tab PO BID Qty: 14 0RF Continued celecoxib 200 mg capsule 200 mg PO DAILY PRN (Reason: Pain) alprazolam 1 mg tablet 0.5 mg PO HS nifedipine 30 mg tablet extended release 30 mg PO DAILY Rx Instructions: On empty stomach quetiapine 100 mg tablet 50 mg PO HS levothyroxine 75 mcg tablet 75 mcg PO DAILYBB ferrous sulfate [FeroSul] 325 mg (65 mg iron) tablet 325 mg PO 4XWK hydroxychloroquine 200 mg tablet 200 mg PO BID fluticasone propionate 50 mcg/actuation spray,suspension 1 spray INTRANASAL DAILY ezetimibe 10 mg tablet 10 mg PO DAILY cyclobenzaprine 5 mg tablet 5 mg PO HS PRN (Reason: Pain/Muscle Spasm) duloxetine 60 mg capsule,delayed release(DR/EC) 60 mg PO DAILY Zepbound 2.5 mg/0.5 mL pen injector 2.5 mg SUBCUT WK Held atorvastatin 40 mg tablet 40 mg PO DAILY Hold Instructions: Resume on 02/06/24. Resume post surgical intervention Discharge Orders: Discharge Order (Routine); Ordered 01/30/24 Ordered By: Heriberto Castillo/Other Patient Handouts: ED Cholecystitis, Presumed Admission Data Admit Date/Time: 01/28/24 08:19 Attending Provider: Heriberto Cruz Admit Provider: Peng Lantigua Primary Care Provider: PCP,NO Other Providers: Peng Lantigua; Libby Conner Hospital Stay Data Consultations 01/26/24 17:13 ED Decision to Admit Stat 01/27/24 07:04 Consult General Surgery Routine 01/29/24 17:13 Burn CD for patient Routine Diagnostic Imagining Performed 01/26/24 13:41 US gallbladder Stat 01/28/24 08:20 MR MRCP Urgent Pending Results Patient Have Any Pending Studies at Discharge: No Discharge Instructions Given to Patient (Per Discharging Provider) Please ensure that you see surgeon upon return home. You ultimately will need to have surgical intervention. Please take antibiotics as prescribed. Do not delay seeing surgeon. Total Time Total Time Spent Total Time Spent (In Minutes): >45 minutes Coding Level of Care Code 86227 INP/OBS DISCH >30 MIN Diagnoses Acute cholecystitis K81.0 Transaminitis R74.01 Essential hypertension I10 Hyperlipidemia E78.5 Primary hypothyroidism E03.9 Systemic lupus erythematosus M32.9
[2024-01-30 12:27] VITALS: BP 117/74
== END 2024-01-30 12:43 | disposition home or self-care (01) | DRG 444 ==
LOC: EDINP 13:31 → ED 13:31 → SUATTDRO 18:05 → 3W 21:16 → SUATTDRO 01-28 08:19